=== PATIENT | female | born 1945 | race Caucasian/White ===

== ENCOUNTER 2017-07-18 11:01 | Outpatient (CLI) | payer MEDICARE, MEDICAID ==
--- NOTE | 2017-07-18 13:20 | CT ---
CTA OF THE NECK UTILIZING IV CONTRAST AND 3D REFORMATTED IMAGING: Date: 07/18/17 INDICATION: History of abnormal carotid ultrasound. FINDINGS: The right brachiocephalic artery appears widely patent. There is mild atherosclerotic irregularity involving the right subclavian artery. There is at least m ild to moderate narrowing involving the proximal aspect and origin of the right vertebral artery. The remaining visualized cervical course appears widely patent. Visualized aspects of the basilar artery is widely patent. There is narrowing of the proximal right internal carotid artery. There is approximately 60% luminal caliber narrowing of the proximal right internal carotid artery at this level. There is mild atherosclerotic irregularity involving the proximal left internal carotid artery. No ad ditional focus of hemodynamically significant stenosis is noted involving the internal carotid arteri es. There is emphysematous change involving the lung apices. There is postsurgical change of prior CABG. No pathologically enlarged lymph nodes are evident. Visualized parotid and submandibular glands are normal appearing. There is a 1.0 cm hyperenhancing le waqar within the posterior aspect of the superior pole of the right kidney which may reflect an enlarg ed parathyroid lesion. There is an additional enhancing lesion seen within the left inferior pole of the thyroid which may reflect slightly hypervascular nodule seen on image 72 of series 2. There is scattered degenerative and osteoarthritic change. There is air fluid level within the right maxillary sinus. IMPRESSION: 1. 60% luminal caliber narrowing proximal right internal carotid artery. 2. Mild to moderate atherosclerotic narrowing involving the origin and proximal aspect of the right vertebral artery. 3. Hyperenhancing nodule within the posterior aspect superior pole of the right kidney needs to be f urther characterized. Thyroid ultrasound is recommended. A small nodular enhancing lesion seen within the inferior pole of the left thyroid gland measuring 4.3 mm. 4. Emphysema. 5. Air fluid level within the right maxillary sinus. Recommend correlation for sinusitis. 6. Postsurgical change of prior CABG. POS: [facility]
[2017-07-18] MEDS ORDERED: Iopamidol 370 76% 100 ML VIAL ONE (13:52)
== END 2017-07-18 11:02 | disposition home or self-care (01) ==
LOC: CT 11:01
PROVIDERS: ATTEND Thoracic Surgery (Cardiothoracic Vascular Surgery)
DX: I65.23 Occlusion and stenosis of bilateral carotid arteries (principal); J43.9 Emphysema, unspecified; I67.2 Cerebral atherosclerosis; N28.89 Other specified disorders of kidney and ureter; Z95.1 Presence of aortocoronary bypass graft
CPT/HCPCS: 70498

== ENCOUNTER 2017-08-09 06:02 | Inpatient (IN) | payer MEDICARE, OTHER ==
[2017-08-08 15:20] VITALS: BMI 34.6
[2017-08-09] MEDS ORDERED: CEFAZOLIN/Water 2 GM/20 ML SYRINGE ONE (06:43)
[2017-08-09] MEDS ORDERED: Fentanyl 100 MCG/2 ML VIAL ONE ×2 (06:44→09:37)
[2017-08-09 06:46] LABS: Hemoglobin 12.4 g/dL (12.0-16.0); Mean Corpuscular HGB CONC 33.3 g/dL (32.0-36.0); Mean Corpuscular Hemoglobin 34.1 pg (27.0-31.0); Mean Platelet Volume 6.6 fL (7.4-10.4); Platelet Count 277 thou/uL (130-400); RBC Distribution Width 13.9 % (11.5-14.5); Red Blood Cell (RBC) Count 3.65 mill/uL (4.20-5.40)
[2017-08-09] MEDS ORDERED: Heparin 5,000 UNITS/ML VIAL ONE (06:46)
[2017-08-09] MEDS ORDERED: Protamine Sulfate 50 MG/5 ML VIAL ONE ×2 (06:46→13:09)
[2017-08-09 07:03] LABS: Anion Gap 14 mmol/L (10-20); BUN (Urea Nitrogen) 14 mg/dL (9.8-20.1); Calc. Creatinine Clearance 61 mL/min (70-130); Calcium 10.5 mg/dL (7.8-10.44); Carbon Dioxide 24 mmol/L (23-31); Chloride 103 mmol/L (98-107); Estimated GFR-MDRD 49; Glucose 94 mg/dL (83-110); Potassium 4.7 mmol/L (3.5-5.1); Sodium 136 mmol/L (136-145)
[2017-08-09] MEDS ORDERED: Promethazine HCl 25 MG/ML VIAL IM PRN ×2 (09:33→13:07)
[2017-08-09] MEDS ORDERED: Ondansetron HCl/PF 4 MG/2 ML Vial IVP PRN ×2 (09:33→13:07)
[2017-08-09] MEDS ORDERED: Promethazine HCl 25 MG/ML VIAL SLOW IVP PRN (09:33)
[2017-08-09] MEDS ORDERED: hydrALAZINE 20 MG/ML VIAL ONE (09:37)
[2017-08-09] MEDS ORDERED: Promethazine HCl 25 MG/ML VIAL ONE (10:19)
--- NOTE | 2017-08-09 10:26 | OP ---
DATE OF PROCEDURE: 08/09/2017 PREOPERATIVE DIAGNOSIS: Asymptomatic right carotid stenosis. POSTOPERATIVE DIAGNOSIS: Asymptomatic right carotid stenosis. PROCEDURE: Right carotid endarterectomy with patch angioplasty. SURGEON: Yordan Quick M.D. ANESTHESIA: General endotracheal. ESTIMATED BLOOD LOSS: Less than 100. DESCRIPTION OF PROCEDURE: After consent was obtained, the patient was brought to the operating room and placed in the supine position on the operating room table. Appropriate anesthetic monitor was pl aced and general endotracheal anesthesia induced. Head was rotated to the left and neck extended. J oints were appropriately padded and head supported. Right neck was prepped and draped in usual sterile fashion. Skin incision was made along the anterio r border of sternocleidomastoid. Platysma was incised with electrocautery. Two facial vein branches were divided between clips and ties. Carotid sheath was entered. Cautery and sharp dissection were used to dissect the carotid system. Common external and internal carotid arteries were carefully ex posed. The patient was given 5000 units of heparin. After 3 minutes, the internal, common, and exte rnal carotid arteries were serially clamped. Incision was made on the common carotid artery extended through the bulb onto the internal carotid artery distal to the plaque. A 10-Setswana [place] shunt wa s placed and antegrade flow reestablished. Endarterectomy was begun on the common carotid artery. T he medial plane was developed. Proximal plaque was divided sharply. Endarterectomy was performed wi th mosquito hemostats to the bulb. Eversion endarterectomy of the external carotid artery was perfor med. The internal carotid artery plaque was carefully dissected and a good tapered distal endpoint o btained distally. Medial fibers were debrided. Arteries were flushed with heparinized saline. Bovi ne pericardial patch was sewn in place with running 6-0 Prolene suture. Prior to completion of the p atch suture line, the shunt was clamped and removed. Arteries were backbled into the operative field and flushed with heparinized saline. The suture line was completed. The external carotid artery wa s unclamped and backbled into the operative field. This was to deair the patch. The suture line was then tied. Antegrade flow was reestablished up the external carotid artery. Ten seconds later, ant egrade flow was reestablished up the internal carotid artery. Two separate sutures were placed for h emostasis. Protamine was administered. After adequate hemostasis had been obtained, wounds were irr igated and closed in layers and Dermabond applied to the skin. The patient was awakened and neurolog ically intact in the operating room. She was transferred to the recovery room in stable condition. Needle, sponge, and instrument counts were all reported as correct at the end of the procedure.
[2017-08-09] MEDS ORDERED: Nitroglycerin 50 MG/250 ML BOT 250 ML ONE (11:40)
[2017-08-09] MEDS ORDERED: HYDROcodone/Acetaminophen 5/325 mg Tablet PO PRN ×2 (13:07)
[2017-08-09] MEDS ORDERED: Acetaminophen 325 MG TAB PO PRN (13:07)
[2017-08-09] MEDS ORDERED: Fentanyl 100 MCG/2 ML VIAL SLOW IVP PRN (13:07)
[2017-08-09] MEDS ORDERED: Nitroglycerin 50 MG/250 ML BOT 250 ML IVPB PRN (13:07)
[2017-08-09] MEDS ORDERED: Phenylephrine 10 MG/NS 250 ML 250 ML IVPB PRN (13:07)
[2017-08-09] MEDS ORDERED: hydrALAZINE 20 MG/ML VIAL SLOW IVP PRN (13:07)
[2017-08-09] MEDS ORDERED: Furosemide 40 MG TAB PO PRN (13:07)
[2017-08-09] MEDS ORDERED: Ondansetron HCl/PF 4 MG/2 ML Vial ONE (13:09)
[2017-08-09] MEDS ORDERED: Vecuronium 10 MG VIAL ONE (13:09)
[2017-08-09] MEDS ORDERED: Dexamethasone 20 MG/5 ML VIAL ONE (13:09)
[2017-08-09] MEDS ORDERED: PROPOFOL 200 MG/20 ML VIAL ONE (13:09)
[2017-08-09] MEDS ORDERED: Glycopyrrolate 0.2 MG/ML 5 ML SYRINGE ONE (13:09)
[2017-08-09] MEDS ORDERED: Heparin 10,000 UNITS/ 10 ML VIAL ONE (13:09)
[2017-08-09] MEDS ORDERED: Lidocaine 1% PF 5 ML VIAL ONE (13:09)
[2017-08-09] MEDS: Sodium Chloride 0.9% 1,000 ML IV SCH (15:01)
[2017-08-09] MEDS: CEFAZOLIN/Water 2 GM/20 ML SYRINGE SLOW IVP SCH ×2 (15:13→21:24)
[2017-08-09] MEDS ORDERED: Naproxen 500 MG TAB PO PRN (20:23)
[2017-08-09] MEDS ORDERED: [UNRECOGNIZED DRUG - OTHER] PO SCH (21:00)
[2017-08-09] MEDS ORDERED: Spironolactone 25 MG TAB PO SCH (21:00)
[2017-08-09] MEDS ORDERED: D3 PO SCH (21:00)
[2017-08-09] MEDS ORDERED: Atorvastatin Calcium 40 MG TAB PO SCH (21:00)
[2017-08-09] MEDS ORDERED: GLUCOSAM PO SCH (21:00)
[2017-08-09] MEDS ORDERED: MANG PO SCH (21:00)
[2017-08-09] MEDS ORDERED: CHONDR MSM1 PO SCH (21:00)
[2017-08-09] MEDS ORDERED: Naproxen 500 MG TAB PO SCH ×2 (21:00)
[2017-08-09] MEDS: Carvedilol 6.25 MG TAB PO SCH (21:23)
[2017-08-10] MEDS: Sodium Chloride 0.9% 1,000 ML IV SCH ×2 (01:57→10:04)
[2017-08-10] MEDS: CEFAZOLIN/Water 2 GM/20 ML SYRINGE SLOW IVP SCH (05:40)
--- NOTE | 2017-08-10 07:30 | DIS ---
DATE OF ADMISSION: 08/09/2017 DATE OF DISCHARGE: 08/10/2017 DIAGNOSIS: Asymptomatic right carotid stenosis. PROCEDURES: Right carotid endarterectomy. DESCRIPTION OF HOSPITAL STAY: Ms. Pineda underwent elective right carotid endarterectomy. She has done well postoperatively. She is neurologically intact and being discharged to home in good condit ion to follow up with me in 2 weeks. DISCHARGE MEDICATIONS: Unchanged.
[2017-08-10 07:52] VITALS: TEMP 98.4
[2017-08-10] MEDS ORDERED: Ezetimibe 10 MG TAB PO SCH (09:00)
[2017-08-10] MEDS ORDERED: Valsartan 80 MG TAB PO SCH (09:00)
[2017-08-10] MEDS ORDERED: Aspirin 325 MG TAB PO SCH (09:00)
[2017-08-10] MEDS: Carvedilol 6.25 MG TAB PO SCH (10:03)
[2017-08-10 10:05] VITALS: BP 166/82
[2017-08-10] MEDS ORDERED: Fish Oil 1,000 MG CAP PO SCH (21:00)
--- NOTE | 2017-08-16 19:35 | EKG ---
Test Reason : PREOP Blood Pressure : / mmHG Vent. Rate : 081 BPM Atrial Rate : 081 BPM P-R Int : 180 ms QRS Dur : 122 ms QT Int : 412 ms P-R-T Axes : 061 -45 052 degrees QTc Int : 478 ms Normal sinus rhythm Right bundle branch block Left anterior fascicular block Bifascicular block Abnormal ECG When compared with ECG of 27-JUL-2014 15:28, Left anterior fascicular block is now Present ST no longer depressed in Anterior leads Confirmed by KRISTIE JETT (2) on 08/16/2017 7:35:13 PM Referred By: LILO Confirmed By:KRISTIE JETT
== END 2017-08-10 11:09 | disposition home or self-care (01) | DRG 39 ==
LOC: SURG A 06:02 → IMCU/EMU 13:41
PROVIDERS: ADMIT Thoracic Surgery (Cardiothoracic Vascular Surgery); ATTEND Thoracic Surgery (Cardiothoracic Vascular Surgery)
PROC: 03CK0ZZ Extirpation of Matter from Right Internal Carotid Artery, Open Approach (ICD-10-PCS; principal; 2017-08-09)
PROC: 03UK0KZ Supplement Right Internal Carotid Artery with Nonautologous Tissue Substitute, Open Approach (ICD-10-PCS; 2017-08-09)
DX: I65.21 Occlusion and stenosis of right carotid artery (principal); I67.1 Cerebral aneurysm, nonruptured; E66.9 Obesity, unspecified; E78.2 Mixed hyperlipidemia; I10 Essential (primary) hypertension; I25.10 Atherosclerotic heart disease of native coronary artery without angina pectoris; Z95.1 Presence of aortocoronary bypass graft; F17.210 Nicotine dependence, cigarettes, uncomplicated; K21.9 Gastro-esophageal reflux disease without esophagitis; I70.203 Unspecified atherosclerosis of native arteries of extremities, bilateral legs; Z68.34 Body mass index [BMI] 34.0-34.9, adult
CPT/HCPCS: 80048; 85027; 93005; 93010; 94640; J0360; J1100; J1642; J1644; J2001; J2405; J2550; J2704; J2720; J3010

== ENCOUNTER 2017-09-30 10:09 | Observation (INO) | payer MEDICARE, MEDICAID ==
[2017-09-30] MEDS ORDERED: Albuterol Sulfate 2.5 mg/0.5 ml Neb ONE (10:36)
[2017-09-30] MEDS ORDERED: Albuterol Sulfate 2.5 mg/3 ml Neb ONE (10:36)
[2017-09-30 11:09] LABS: ALT (SGPT) 16 U/L (8-55); AST (SGOT) 25 U/L (5-34); Albumin 3.8 g/dL (3.4-4.8); Alkaline Phosphatase 85 U/L (40-150); Anion Gap 15 mmol/L (10-20); BUN (Urea Nitrogen) 13 mg/dL (9.8-20.1); Bilirubin, Total 0.3 mg/dL (0.2-1.2); CK (CPK) 259 U/L (29-168); Calc. Creatinine Clearance 0 mL/min (70-130); Carbon Dioxide 22 mmol/L (23-31); Chloride 94 mmol/L (98-107); Estimated GFR-MDRD 53; Globulin 3.1 g/dL (2.4-3.5); Glucose 103 mg/dL (83-110); Potassium 4.5 mmol/L (3.5-5.1); Protein, Total 6.9 g/dL (6.0-8.3); Sodium 126 mmol/L (136-145)
[2017-09-30 11:12] LABS: CKMB 3.2 ng/mL (0-6.6); Troponin I 0.048 ng/mL (< 0.028)
[2017-09-30 11:18] LABS: Hemoglobin 13.6 g/dL (12.0-16.0); Mean Corpuscular HGB CONC 34.7 g/dL (32.0-36.0); Mean Corpuscular Hemoglobin 34.5 pg (27.0-31.0); Mean Corpuscular Volume 99.6 fl (81.0-99.0); RBC Distribution Width 14.5 % (11.5-14.5); Red Blood Cell (RBC) Count 3.95 mill/uL (4.20-5.40); White Blood Cell (WBC) Count 10.5 thou/uL (4.8-10.8)
[2017-09-30 11:19] LABS: #Lymphocytes 1.7 thou/uL (1.20-3.40); #Monocytes 0.7 thou/uL (0.11-0.59); %Basophils 0.2 % (0.0-1.0); %Eosinophils 0.1 % (0.0-10.0); %Lymphocytes 15.9 % (21.0-51.0); %Neutrophils 76.8 % (42.0-75.0)
--- NOTE | 2017-09-30 11:21 | RAD ---
PORTABLE CHEST 1 VIEW: Date: 09/30/17 Time: 1036 hours HISTORY: Dyspnea. FINDINGS: Comparison made with exam of 07/27/14. There are changes of median sternotomy. The heart size is normal. The aorta is tortuous. The lungs ar e expanded without focal areas of consolidation, pneumothorax, jass pulmonary edema, or pleural effu sions. IMPRESSION: No acute process. POS: [facility]
[2017-09-30 11:23] LABS: Mean Platelet Volume 8.6 fL (7.4-10.4); PLT Morphology Comment Appears Decreased; Platelet Count 105 thou/uL (130-400)
[2017-09-30] MEDS ORDERED: methylPREDNISolone Sod Succ/PF 125 MG/2 ML VIAL ONE (12:21)
--- NOTE | 2017-09-30 12:32 | PDOC.FPRHP ---
- History of Present Illness Chief Complaint: Chest Pain History of Present Illness: 72 yo F with a history of sCHF and CAD s/p CABG x3 presents with complaint of crushing chest pain that onset this morning. She states that she has been coughing for the past few days and feels that this was the cause of the chest pain. She states that currently her chest pain has resolved. When the pain was present coughing exacerbated the pain. She denies radiation of the pain. Regarding the cough, she states that this has been present for the past few days and is productive in nature without fever or blood in the sputum. The sputum at home was been white/clear. She admits to SOB at home. She also complains of 1 week of watery diarrhea without blood or mucus. She denies associated n/v or abdominal pain. She has had no contacts with similar symptoms. She states that she has not eaten much for the past few days because it "goes right through me." ED Course: In the ED she received 324 mg ASA, sublingual nitro 0.4 mg, albuterol neb, and , solumedrol 125 mg IV. EKG showed a RBBB and left anterior fascicular block which was consistent with EKG from 08/09/17 - Allergies/Adverse Reactions Allergies Allergy/AdvReac Type Severity Reaction Status Date / Time adhesive Allergy Verified 09/30/17 13:35 black pepper Allergy Verified 09/30/17 13:35 ibuprofen Allergy dizzy, Verified 09/30/17 13:35 can't see, can't stand - Home Medications Medication Instructions Recorded Confirmed Type Aspirin 325 mg PO DAILY 08/08/17 09/30/17 History Atorvastatin Calcium 1 tab PO DAILY 08/08/17 09/30/17 History Carvedilol 1 tab PO BID 08/08/17 09/30/17 History Cholecalciferol (Vitamin D3) 2,000 unit PO DAILY 08/08/17 09/30/17 History [Vitamin D3] Esomeprazole Magnesium [NexIUM] 1 tab PO ASDIR 08/08/17 09/30/17 History Ezetimibe 1 tab PO DAILY 08/08/17 09/30/17 History Furosemide [Lasix] 40 mg PO DAILY PRN 08/08/17 09/30/17 History Glucosam/Chondr-Msm1/D3/C/Jd 1 tablet PO BID 08/08/17 09/30/17 History [Glucosamine Chondroitin Complex] Naproxen Sodium [Aleve] 2 tab PO BID PRN 08/08/17 09/30/17 History Allen-3 Fatty Acids/Fish Oil 1 cap PO HS 08/08/17 09/30/17 History [Allen 3 Fish Oil Softgel] Spironolactone 0.5 tab PO HS 08/08/17 09/30/17 History - History PMHx: HTN CAD COPD (likely) Peripheral Neuropathy PAD CHF GERD HLD CVA DVT post graft for CABG PSHx: CABG x4 Endarterectomy Right AAA repair Right cerebral aneurism repair Liat FHx: Social: 50 pack year smoking - Review of Systems General: denies: fever/chills, weight/appetite/sleep changes, night sweats Eyes: denies: eye pain, vision changes ENT: denies: nasal congestion, rhinorrhea Respiratory: reports: cough (Productive), shortness of breath Cardiovascular: reports: chest pain (Crushing, substernal, non radiating). denies: palpitation, edema Gastrointestinal: reports: diarrhea (watery. w/o blood or mucus). denies: nausea, vomiting, abdominal pain Genitourinary: denies: incontinence, dysuria Skin: denies: rashes, lesions Musculoskeletal: denies: pain, tenderness Neurological: denies: numbness, syncope Psychological: denies: anxiety, depression - Vital signs BP: 109/51 HR: 77 RR: 20 Tmax: 97.6 Pox: 95% on 2L Wt: 79kg - Physical Exam Constitutional: NAD, awake, alert and oriented HEENT: normocephalic and atraumatic, PERRLA, no scleral icterus Neck: supple, FROM Chest: no-tender to palpation Heart: RRR, normal S1/S2, no murmurs/rubs/gallops, no edema Lungs: no respiratory distress -Lungs: Mild expiratory wheezing worst in the bases b/l Abdomen: soft, bowel sounds present -Abdomen: LLQ TTP Musculoskeletal: normal structure, normal tone, ROM grossly normal Neurological: no focal deficit, CN II-XII intact, normal sensation Skin: no rash/lesions, good turgor Heme/Lymphatic: no unusual bruising or bleeding Psychiatric: normal mood and affect FMR H&P: Results - Labs Result Diagrams: 09/30/17 10:40 09/30/17 10:40 Lab results: WBC 10.5 thou/uL (4.8-10.8) 09/30/17 10:40 Hgb 13.6 g/dL (12.0-16.0) 09/30/17 10:40 Hct 39.4 % (36.0-47.0) 09/30/17 10:40 MCV 99.6 fl (81.0-99.0) H 09/30/17 10:40 Plt Count 105 thou/uL (130-400) L 09/30/17 10:40 Neutrophils % 76.8 % (42.0-75.0) H 09/30/17 10:40 Sodium 126 mmol/L (136-145) L 09/30/17 10:40 Potassium 4.5 mmol/L (3.5-5.1) 09/30/17 10:40 Chloride 94 mmol/L (98-107) L 09/30/17 10:40 Carbon Dioxide 22 mmol/L (23-31) L 09/30/17 10:40 BUN 13 mg/dL (9.8-20.1) 09/30/17 10:40 Creatinine 1.03 mg/dL (0.6-1.1) 09/30/17 10:40 Glucose 103 mg/dL (83-110) 09/30/17 10:40 Calcium 10.0 mg/dL (7.8-10.44) 09/30/17 10:40 Total Bilirubin 0.3 mg/dL (0.2-1.2) 09/30/17 10:40 AST 25 U/L (5-34) 09/30/17 10:40 ALT 16 U/L (8-55) 09/30/17 10:40 Alkaline Phosphatase 85 U/L (40-150) 09/30/17 10:40 Creatine Kinase 259 U/L (29-168) H 09/30/17 10:40 CK-MB (CK-2) 3.2 ng/mL (0-6.6) 09/30/17 10:40 B-Natriuretic Peptide 243.2 pg/mL (0-100) H 09/30/17 10:40 Serum Total Protein 6.9 g/dL (6.0-8.3) 09/30/17 10:40 Albumin 3.8 g/dL (3.4-4.8) 09/30/17 10:40 Trop 0.048 - EKG Interpretation EKG: RBBB, left anterior fascicular block, NSR - Radiology Interpretation Chest x-ray Status: report reviewed by me (No acute process) FMR H&P: A/P - Problem List (1) Atypical chest pain Current Visit: Yes Status: Resolved Priority: High Code(s): R07.89 - OTHER CHEST PAIN (2) COPD exacerbation Current Visit: Yes Status: Acute Priority: High Code(s): J44.1 - CHRONIC OBSTRUCTIVE PULMONARY DISEASE W (ACUTE) EXACERBATION (3) Gastroenteritis Current Visit: Yes Status: Acute Priority: Medium Code(s): K52.9 - NONINFECTIVE GASTROENTERITIS AND COLITIS, UNSPECIFIED (4) Hyponatremia Current Visit: Yes Status: Acute Priority: Medium Code(s): E87.1 - HYPO- OSMOLALITY AND HYPONATREMIA (5) Hypochloremia Current Visit: Yes Status: Acute Priority: Medium Code(s): E87.8 - OTH DISORDERS OF ELECTROLYTE AND FLUID BALANCE, NEC (6) PAD (peripheral artery disease) Current Visit: Yes Status: Chronic Priority: Low Code(s): I73.9 - PERIPHERAL VASCULAR DISEASE, UNSPECIFIED (7) CAD (coronary artery disease) Current Visit: Yes Status: Chronic Priority: Medium Code(s): I25.10 - ATHSCL HEART DISEASE OF [place] CORONARY ARTERY W/O ANG PCTRS Qualifiers: Coronary Disease-Associated Artery/Lesion type: bypass graft [place] vs. transplanted heart: [place] heart Associated angina: without angina Qualified Code(s): I25.810 - Atherosclerosis of coronary artery bypass graft(s) without angina pectoris (8) CHF (congestive heart failure) Current Visit: No Status: Chronic Priority: Medium Code(s): I50.9 - HEART FAILURE, UNSPECIFIED Qualifiers: Heart failure type: systolic (9) GERD (gastroesophageal reflux disease) Current Visit: Yes Status: Chronic Priority: Low Code(s): K21.9 - GASTRO- ESOPHAGEAL REFLUX DISEASE WITHOUT ESOPHAGITIS (10) HTN (hypertension) Current Visit: Yes Status: Chronic Priority: Medium Code(s): I10 - ESSENTIAL (PRIMARY) HYPERTENSION Qualifiers: Hypertension type: essential hypertension Qualified Code(s): I10 - Essential (primary) hypertension - Plan Atypical chest pain - Admit for tele obs - trend trops - it has been 1 year since last echo, will repeat - Nuc stress test in am - NPO at midnight COPD exacerbation, likely - Prednisone PO 40 mg - Levaquin 500 mg PO - Schedule duonebs q4 - O2 by NC PRN to maintain sat over 92% Gastroenteritis - likely viral - will get fecal lactoferrin, O&P, C diff antigen - gentle IVF given pts hx of CHF Hyponatremia - asymptomatic - 2/2 volume loss via GI - IVF as above - BMP in am Hypochloremia - asymptomatic - 2/2 volume loss via GI - IVF as above - BMP in am CHF - patient does not currently appear to be volume overloaded - monitor I/O - heart healthy low sodium diet - continue home meds HTN - currently controlled - continue home meds GERD - continue home PPI HLD - continue statin CAD/PAD - stress test as above - continue home antihypertensives, ASA, statin 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 FMR H&P: Upper Level - Pertinent history 72 yo with hx of CABG CHF, and long smoking hx. She has been ill with diarrhea for one week, had significant and productive cough and had subsequent chest pain this morning. Chest pain has improved with less coughing. no fever at home. She has been eating less because of the diarhea. - Pertinent findings Vital signs WNL except 95% on 2 L Gen: NAD, AOx3 CV: RRR, no murmurs or rubs Resp: mild wheezing and crackles along patients left lung. abd: Soft, nontender, non distended. ECG: findings as above, but no changes from previous. Trop:0.048 BNP 243 CXR: NAD - Plan Date/Time: 09/30/17 1225 1. Atypical chest pain- Likely secondary to cough,see below, but will investigate CAD causes because of patient's hx. Will trend trops and get stress test tomorrow. Will order echo to evaluate CHF. 2. Possible new diagnosis COPD- patient had negative work up 4 years ago but she has long smoking hx, and new hypoxia and cough. Will treat with steroids, duonebs and abx. Patient's physical and hx are consistent with pneumonia but she is not septic and WBC in normal. CXR normal. ABX for COPD will cover CAP regardless 3. Gastroenteritis- Diarrhea for one week. Will give gentle fluids and check C diff. 4. hyponatremia- likely 2/2 to diarrhea or SIADH with patient's current lung findings. will give gentle fluids an monitor. 5. Gerd- home ppi 6. CAD- see above. will continue home statin 7. HLD- home statin 8. Tobacco abuse- counseled on how important it is for her quit. IJessica MD, have evaluated this patient and agree with findings/plan as outlined by agriculture intern resident. Pertinent changes/additions are listed here. Attending Addendum - Attending Addendum Date/Time: 09/30/17 6509 I personally evaluated the patient and discussed the management with Dr. Ragland. I agree with the History, Examination, Assessment and Plan documented above with any addition or exceptions noted below. The patient presented with chest pain, cough and diarrhea. We will trend trops and get stress test and echo. Will treat with prednisone and levaquin. Will also get stool studies.
[2017-09-30] MEDS ORDERED: Ondansetron PF 4 MG/2 ML Vial IVP PRN (13:14)
[2017-09-30] MEDS ORDERED: Ondansetron ODT 4 MG TAB SL PRN (13:14)
[2017-09-30] MEDS ORDERED: Acetaminophen 325 MG TAB PO PRN (13:14)
[2017-09-30 13:16] VITALS: BMI 33.6
[2017-09-30] MEDS ORDERED: Furosemide 40 MG TAB PO PRN (13:25)
[2017-09-30] MEDS ORDERED: Non-Formulary Item 1 EACH (Naproxen Sodium [Aleve] 2 TAB) PO PRN (13:25)
[2017-09-30] MEDS ORDERED: ESOMEPRAZOLE MAGNESIUM PO SCH (13:30)
[2017-09-30 14:25] LABS: Troponin I 0.045 ng/mL (< 0.028)
[2017-09-30 17:20] LABS: Troponin I 0.053 ng/mL (< 0.028)
[2017-09-30] MEDS: Sodium Chloride 0.9% 1,000 ML IV SCH (17:22)
[2017-09-30 20:22] LABS: Troponin I 0.046 ng/mL (< 0.028)
[2017-09-30] MEDS: Fish Oil 1,000 MG CAP PO SCH (20:51)
[2017-09-30] MEDS: Spironolactone 25 MG TAB PO SCH (20:51)
[2017-09-30] MEDS ORDERED: (Glucosam/Chondr-Msm1/D3/C/Mang [Glucosamine Chondroitin Comple PO SCH (21:00)
[2017-10-01] MEDS: Sodium Chloride 0.9% 1,000 ML IV SCH ×2 (01:05→17:28)
[2017-10-01] MEDS: Naproxen 500 MG TAB PO PRN ×2 (01:08→05:27)
[2017-10-01 05:11] LABS: Anion Gap 13 mmol/L (10-20); BUN (Urea Nitrogen) 12 mg/dL (9.8-20.1); Calc. Creatinine Clearance 82 mL/min (70-130); Calcium 9.1 mg/dL (7.8-10.44); Carbon Dioxide 20 mmol/L (23-31); Cardiac Risk 3.1 (Less than 4.5); Chloride 99 mmol/L (98-107); Cholesterol 93 mg/dl (< 200 Desired); Estimated GFR-MDRD 72; Glucose 132 mg/dL (83-110); HDL Cholesterol 30 mg/dL (>60 Neg Risk); LDL Cholesterol, Calculated 48 mg/dL; Potassium 4.3 mmol/L (3.5-5.1); Sodium 128 mmol/L (136-145); Triglycerides 76 mg/dL (Less than 150)
[2017-10-01 06:41] LABS: Hemoglobin 12.1 g/dL (12.0-16.0); Mean Corpuscular HGB CONC 34.6 g/dL (32.0-36.0); Mean Corpuscular Hemoglobin 34.3 pg (27.0-31.0); Mean Corpuscular Volume 99.3 fl (81.0-99.0); Mean Platelet Volume 8.6 fL (7.4-10.4); Platelet Count 100 thou/uL (130-400); RBC Distribution Width 14.4 % (11.5-14.5); Red Blood Cell (RBC) Count 3.53 mill/uL (4.20-5.40); White Blood Cell (WBC) Count 8.1 thou/uL (4.8-10.8)
--- NOTE | 2017-10-01 09:08 | PDOC.FM ---
- Subjective Subjective: Patient states she slept well with no interruptions overnight. Still coughing, non-productive. Denies chest pain or diarrhea overnight. - Objective Vital Signs & Weight: Vital Signs (12 hours) Temp Pulse Resp BP Pulse Ox 10/01/17 08:00 97.7 F 85 20 167/74 H 93 L 10/01/17 03:45 98.3 F 87 24 H 147/70 H 94 L 10/01/17 00:38 83 16 Weight Weight 80.739 kg I&O: 09/30/17 10/01/17 10/02/17 06:59 06:59 06:59 Intake Total 1923 Output Total 1450 Balance 473 Result Diagrams: 10/01/17 04:42 10/01/17 04:42 <Blake Regalado - Last Filed: 10/01/17 09:06> - Objective Vital Signs & Weight: Weight Admit Weight 80.739 kg Weight 80.558 kg Result Diagrams: 10/01/17 04:42 10/02/17 07:31 <Héctor Landa - Last Filed: 10/29/17 02:56> Phys Exam - Physical Examination HEENT: PERRLA, moist MMs Neck: no nodes, supple end expiratory wheezes diffusely Cardiovascular: RRR, no significant murmur Gastrointestinal: soft, non-tender, no distention, positive bowel sounds Musculoskeletal: no edema, pulses present Neurological: non-focal, normal sensation, moves all 4 limbs Psychiatric: normal affect, A&O x 3 <Blake Regalado - Last Filed: 10/01/17 09:06> Dx/Plan (1) COPD exacerbation Code(s): J44.1 - CHRONIC OBSTRUCTIVE PULMONARY DISEASE W (ACUTE) EXACERBATION Status: Acute (2) Gastroenteritis Code(s): K52.9 - NONINFECTIVE GASTROENTERITIS AND COLITIS, UNSPECIFIED Status : Acute (3) Hypochloremia Code(s): E87.8 - OTH DISORDERS OF ELECTROLYTE AND FLUID BALANCE, NEC Status: Acute (4) Hyponatremia Code(s): E87.1 - HYPO-OSMOLALITY AND HYPONATREMIA Status: Acute (5) CAD (coronary artery disease) Code(s): I25.10 - ATHSCL HEART DISEASE OF [place] CORONARY ARTERY W/O ANG PCTRS Status: Chronic QualifierTitle: Coronary Disease-Associated Artery/Lesion type: bypass graft [place] vs. transplanted heart: [place] heart Associated angina: without angina Qualified Code(s): I25.810 - Atherosclerosis of coronary artery bypass graft(s) without angina pectoris (6) GERD (gastroesophageal reflux disease) Code(s): K21.9 - GASTRO-ESOPHAGEAL REFLUX DISEASE WITHOUT ESOPHAGITIS Status: Chronic (7) HTN (hypertension) Code(s): I10 - ESSENTIAL (PRIMARY) HYPERTENSION Status: Chronic QualifierTitle: Hypertension type: essential hypertension Qualified Code( s): I10 - Essential (primary) hypertension (8) PAD (peripheral artery disease) Code(s): I73.9 - PERIPHERAL VASCULAR DISEASE, UNSPECIFIED Status: Chronic (9) Atypical chest pain Code(s): R07.89 - OTHER CHEST PAIN Status: Resolved (10) CHF (congestive heart failure) Code(s): I50.9 - HEART FAILURE, UNSPECIFIED Status: Chronic QualifierTitle: Heart failure type: systolic - Plan Plan: Atypical chest pain - Admit for tele obs - trops trending down - it has been 1 year since last echo, will repeat this AM - Nuc stress test this am COPD exacerbation, likely - Prednisone PO 40 mg - Levaquin 500 mg PO - Schedule duonebs q4 - O2 by NC PRN to maintain sat over 92% - on RA this morning Gastroenteritis - likely viral - will get fecal lactoferrin, O&P, C diff antigen - gentle IVF given pts hx of CHF Hyponatremia - asymptomatic - 2/2 volume loss via GI - IVF as above - BMP in am, trend Hypochloremia - asymptomatic - 2/2 volume loss via GI - IVF as above - BMP in am, trend CHF - patient does not currently appear to be volume overloaded - monitor I/O - heart healthy low sodium diet - continue home meds HTN - currently controlled - continue home meds GERD - continue home PPI HLD - continue statin CAD/PAD - stress test as above - continue home antihypertensives, ASA, statin 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 Goff I agree with the History, Examination, Assessment and Plan documented above with any addition or exceptions noted below. Pt. feels better, but continues to have wheezes on exam. Awaiting Cardiolyte and Echo. If abnormal, will discuss with Cards. Continue Nebs, steroids, abx' s for COPD exacerbation. <Héctor Landa - Last Filed: 10/29/17 02:56>
[2017-10-01] MEDS: Ezetimibe 10 MG TAB PO SCH (12:17)
[2017-10-01] MEDS: predniSONE 20 MG TAB PO SCH (12:17)
[2017-10-01] MEDS: Atorvastatin Calcium 40 MG TAB PO SCH (12:18)
[2017-10-01] MEDS: Aspirin 325 MG TAB PO SCH (12:18)
[2017-10-01] MEDS: Enoxaparin Sodium 40 MG/0.4 ML SYRINGE SC SCH (12:19)
--- NOTE | 2017-10-01 14:04 | NM ---
NUCLEAR MEDICINE CARDIAC STRESS TEST WITH EJECTION FRACTION: HISTORY: ACS. Congestive heart failure. Coronary artery disease. Hypertension. COPD. COMPARISON: None. TECHNIQUE: Stress and rest was performed after the intravenous administration of 33 and 27 mCi technetium-99m se stamibi intravenously, respectively. FINDINGS: There is a large volume scar of the lateral wall left ventricle. No reversible ischemia is present. T here is global hypokinesia with akinesia of the inferior and lateral wall. IMPRESSION: 1. Evidence of lateral wall scar, as well as global hypokinesia and inferior and some lateral wall a kinesia. 2. Abnormally low ejection fraction at 22%. POS: [facility]
[2017-10-01] MEDS ORDERED: Regadenoson 0.4 MG/5 ML SYRINGE ONE (15:24)
[2017-10-01] MEDS: Fish Oil 1,000 MG CAP PO SCH (20:26)
[2017-10-01] MEDS: Spironolactone 25 MG TAB PO SCH (20:27)
[2017-10-01] MEDS ORDERED: Carvedilol 6.25 MG TAB PO SCH (21:00)
--- NOTE | 2017-10-02 06:19 | CON ---
DATE OF ADMISSION: 09/30/2017 DATE OF CONSULTATION: 10/01/2017 INDICATION FOR CONSULTATION: This is a very pleasant 72-year-old female with a long history of perip heral vascular disease, coronary artery disease who was presented to the hospital after having coughi ng and chest discomfort. She had a stress test today which showed no evidence of reversible ischemia . She is having a lateral scar but during the procedure, she was also noted that she had decreased e jection fraction. Previous echocardiogram showed an ejection fraction around 45% to 50% by echocardi ograms in the office. We were asked to see her due to the change in the ejection fraction, but she d enied any chest pain to me as I was present during the stress test earlier today. She was complainin g of the cough and fatigue, otherwise was doing okay and this afternoon when I see her, she is actual ly feeling better than she did earlier this morning and appears to be in no acute distress. She smok ed heavily until just recently. She says she stopped smoking a couple of weeks ago. For her complet e history and physical, review of systems, family history, social history, medications, and allergies , please refer to the notes dictated by the nurse practitioner Kadie, I have reviewed this with her a nd we reviewed the patient together also, and I would agree with her assessment and plan. PHYSICAL EXAMINATION: GENERAL: Reveals an elderly female. VITAL SIGNS: Blood pressure 142/66, heart rate is 86 and regular, O2 saturation 92%, respiratory rat e is 18. She is afebrile. HEENT: Shows head to be normocephalic, atraumatic. There is a well-healed surgical incision on the right carotid area. CHEST: Has diffuse rales and rhonchi throughout. CARDIOVASCULAR: Exam reveals regular rate and rhythm with no gross murmurs. ABDOMEN: Soft and nontender. Positive bowel sounds are present. EXTREMITIES: Showed no clubbing, cyanosis or edema. She has decreased popliteal pulses, decreased f emoral pulses. I cannot palpate pedal pulses. Extremities are cool, but otherwise unremarkable. NEUROLOGIC: She appears to be intact. IMPRESSION: Elderly female with abnormal stress test today which showed decreasing ejection fraction . Echocardiogram showed ejection fraction today of 40-45% by my evaluation. Otherwise, she has mild to moderate mitral and tricuspid valve regurgitation and some aortic valve sclerosis, but no signifi cant obstructive lesions were noted. She has had history of coronary artery disease and has had I be lieve bypass surgery or myocardial infarction in the past, but otherwise has been doing quite well. She does have a right carotid endarterectomy and has peripheral vascular disease. At this time, we w ill continue to monitor her overnight. She has been unremarkable. She denies any chest pain since I saw her this morning, but otherwise appears to be doing quite well. For the remainder of the assess ment and plan, please refer to the notes dictated by the nurse practitioner. At this time, the patie nt overall is stable.
--- NOTE | 2017-10-02 07:05 | CON ---
CARDIOLOGY CONSULT DATE OF CONSULTATION: 10/01/2017 PRIMARY DISTRICT MANAGER POSTAL SERVICE: Jeremy Lepe M.D. REFERRING PHYSICIAN: Blake Regalado MD REASON FOR CARDIOLOGY CONSULT: Nuclear stress test showing a new low EF 22%. HISTORY OF PRESENT ILLNESS: Ms. Pineda is a 72-year-old female with significant history of CAD with history CABG x4 in 2004 in [place] and stent placement in 2013, COPD exacerbation, hypertension, peripheral vascular disease with bilateral iliac stent placement, and rupture of cerebral aneurysm and coil replacement in 2005. Patient presented to the emergency department for worsening of the weakness and dizziness. Patient reports that she had some kind of infection a few weeks ago and started having watery diarrhea for 5 days and chronic cough with shortness of breath for 2 days prior to this admission. She could not eat or drink for one week and she felt she was already dehydrated so that she decided to present to the ER for further evaluation to treatment. She also experienced chest pain to the midsternal area. She thinks it is from chronic cough. She describes the pain is not similar to the pain which she had prior to myocardial infarction in 2004. During the initial cardiology consultation assessment, the patient still complain of the light dizziness, which she describes as the room is spinning like dizziness, but no other cardiac complaints such as shortness of breath, chest pain or discomfort in her chest, palpitation or fluttering, nausea, vomiting, numbness to the left upper extremity or any other cardiac complaints. The patient's stress test today shows no reversible ischemia, but evidence of lateral wall scar as well as global hypokinesia and inferior and some lateral wall hypokinesia and ejection fraction of 22%; however, patient's today's echocardiogram shows patient's EF of 45%-50%. Patient had CABG x4 in 2004 [place] and stent placement in 2013. Prior to the stent placement, the patient's EF was 35%-40% and 45%-50% after the stent. Cardiac catheterization in 2013 revealed 3-vessel CAD with left main CAD , moderate left ventricular dysfunction, 3 of 4 graft patent, and success stent placement in the RCA. Her pulmonary function test in 2014 showed restrictive pulmonary impairment and patient was diagnosed of COPD; however, she reports that she was doing well without any respiratory distress until a few weeks ago. She continued to smoke 4-5 cigars a day until she quit about 1 week ago. The patient's EKG today shows a sinus rhythm with unchanged right bundle henok block, no ST segments or T wave inversions. PAST MEDICAL HISTORY: 1. Coronary artery disease. 2. Hypertension. 3. Hypercholesterolemia. 4. Rupture of cerebral aneurysm in the right side with coil replacement. 5. History of left leg DVT in 2004. 6. Peripheral neuropathy. 7. Peripheral artery disease. 8. GERD. PAST SURGICAL HISTORY: 1. CABG x4 in 2004, which was done in [place]. 2. Stent placement in the right RCA in 2013. 3. Bilateral iliac stents placement in 2013. 4. Right carotid endarterectomy in 08/2017. 5. Gallbladder removed in . 6. Coil replacement from rupture of right cerebral aneurysm in 2005. FAMILY HISTORY: The patient's mother had a history of diabetes; however, there are no significant family history of coronary artery disease, hypertension, hyperlipidemia or stroke. SOCIAL HISTORY: Patient smokes 4-5 cigars a day and she quit about 1 week ago. She had smoked more than 55 years. She denies any ETOH or illicit drug abuse. She lives and takes care of 2 great grandchildren. Her granddaughter lives next door. She is active at home cooking, cleaning house for great grandchildren. ALLERGIES: The patient is allergic to ADHESIVE TAPE, BLACK PEPPER, and IBUPROFEN. HOME MEDICATIONS: [place] 3 one capsule at night, naproxen 220 mg 2 tablets twice a day as needed, vitamin D 2000 units daily, aspirin 325 mg once a day, glucosamine 1 tablet twice a day, spironolactone 25 mg half tablet once a day at night, Zetia 10 mg once a day, Nexium 40 mg once a day, carvedilol 6.25 one tablet twice a day, atorvastatin 80 mg once a day, Lasix 40 mg daily as needed. REVIEW OF SYSTEMS: The following complete review of systems was negative, unless otherwise mentioned in the HPI or below: Constitutional: Weight loss or gain, sense of well-being, ability to conduct usual activities, exercise tolerance. Skin/Breast: Rash, itching, changes in hair growth or loss, nail changes, breast lumps, tenderness, swelling, nipple discharge. Eyes: She wears glasses and denies double vision, vision changes, tearing, blind spots, pain. ENT: Headache, lightheadedness, nose bleeding, colds, obstruction, discharge, dental difficulties, gingival bleeding, dentures, neck stiffness, pain, tenderness, masses in thyroid or other areas. Cardiovascular: Positive for precordial pain, but negative for palpitations, syncope, dyspnea on exertion , orthopnea, nocturnal paroxysmal dyspnea, edema, cyanosis, heart murmurs, varicosis claudication. Respiratory: Positive for shortness of breath, but negative for wheezing, stridor, hemoptysis. Gastrointestinal: Poor appetite, dysphagia, abdominal pain, heartburn, nausea, vomiting, jaundice, constipation, abnormal stool. Genitourinary: Urgency, frequency, dysuria, nocturia, hematuria, polyuria, oliguria, unusual color of urine. Musculoskeletal: She uses a cane, but negative for swelling, redness or heat of muscle or joint, limitation of motion. Neurologic: Seizure conversion paralysis, tremor, incoordination. Psychiatric: Emotional problem, anxiety, depression, previous psychiatric care, unusual perceptions, hallucinations. PHYSICAL EXAMINATION: VITAL SIGNS: Blood pressure 148/66, pulse is 85, respiratory rate 18, O2 sat 92 % up to 98% on room air, temperature 97.6. GENERAL: Well-developed, well-nourished without any acute distress. HEAD: Normocephalic, atraumatic. EYES: Extraocular muscle movement intact. ENT: Oral and nose mucosa are moist without lesion. She wear denture. NECK: Supple and normal range of motion. LUNGS: Very diminished at the bases and rhonchi, and no wheezing noted. CARDIOVASCULAR: Regular rate and rhythm. Normal S1, S2. There are no S3 or S4. No significant murmur, hives, thrill bruit, or rub noted. EXTREMITIES: There are 2+ pulses in bilateral dorsal pedis, posterior tibial, popliteal, and femoral pulse arteries. Carotid pulse present without bruit or thrill. No edema in the bilateral lower extremities. ABDOMEN: Soft, nontender. All mass to palpate, nondistended. Bowel sounds are present. MUSCULOSKELETAL: No calf tenderness, able to move all extremities. SKIN: Warm and dry. No skin rash or lesion or bruise noted. NEUROLOGIC: Alert, oriented x4, awake. Normal affect. Nonfocal. PSYCHIATRIC: Mood, affect are normal. LABORATORY DATA: A 12-lead EKG in the ER shows sinus rhythm with occasional PVCs unchanged right bundle henok block. WBC 8.1, hemoglobin 12.1, hematocrit 35.1, platelets 100. Sodium 128, potassium 4.3, BUN 12, creatinine 0.79, glucose 132. AST 25, ALT 16, creatine kinase is 259, CK-MB 3.1, troponin 0.048, 0.045, 0.053, 0.046. BNP is 243. Total cholesterol 93, triglycerides 76, HDL 30 and LDL of 48. Chest x-ray shows no acute process. The patient's stress test shows no evidence of reversible ischemia, but evidence of lateral wall scars, global hypokinesia inferior and some lateral wall akinesia and the EF was 22%. However , patient's echocardiogram today shows EF of 45%-50%. ASSESSMENT AND PLAN: 1. Ischemic cardiomyopathy with decreased ejection fraction. The patient's stress test today shows the ejection fraction of 22%; however, patient's echocardiogram today showed a 45%-50%, which is no change from 2017. The patient denies any shortness of breath, swelling the leg or bloated abdomen. We would like to continue current medication and we like to continue to monitor. Most likely the patient might be discharged tomorrow; however, we like to defer to the Dr. Lepe, who is her primary inspector missile. 2. Indeterminate troponin level, which is trending down at this moment. Possible the patient's increased troponin is due to severe cough and dehydration due to chronic diarrhea for 5 days. Again, patient does not have any chest pain or discomfort in her chest and the patient's EKG does not show any ST segment changes or T-wave inversions. We like to continue to monitor the patient on the telemetry at this moment. 3. Coronary artery disease with a history of coronary artery bypass graft x4 and a stent placement in RCA in 2014. Patient's condition is stable. We would like to continue to monitor on telemetry. The patient is on aspirin 325 mg once a day, statin, Lovenox, and Zetia. At this time, I like to restart the patient on carvedilol from [facility]. 4. Hypertension. Her blood pressure is elevated at this moment. Again, the patient's carvedilol will be started from [facility]. 5. Hyperlipidemia. Patient is on statin. The patient tolerated well. 6. Gastroesophageal reflux disease. Patient is on Protonix. The patient's condition is stable at this moment. 7. Peripheral artery disease with history of bilateral iliac stent placement. The condition is stable at this moment. We like to continue to monitor. 8. Hyponatremia. Patient should be on some mild fluid restriction at this moment. 9. Current smoker. Smoking cessation education given to the patient and her family. Thank you very much for allowing Cardiology Service to participate in care of this patient. We will follow along with the patient care team and make further recommendations as appropriate. Dr. Lepe is going to take over the patient' s care from tomorrow. LATRICIA
[2017-10-02 07:56] LABS: Anion Gap 13 mmol/L (10-20); BUN (Urea Nitrogen) 12 mg/dL (9.8-20.1); Calc. Creatinine Clearance 73 mL/min (70-130); Calcium 9.8 mg/dL (7.8-10.44); Carbon Dioxide 23 mmol/L (23-31); Chloride 100 mmol/L (98-107); Estimated GFR-MDRD 63; Glucose 93 mg/dL (83-110); Potassium 3.8 mmol/L (3.5-5.1); Sodium 132 mmol/L (136-145)
[2017-10-02] MEDS ORDERED: Carvedilol 6.25 MG TAB PO SCH (08:00)
[2017-10-02] MEDS: Aspirin 325 MG TAB PO SCH (08:49)
[2017-10-02] MEDS: Ezetimibe 10 MG TAB PO SCH (08:49)
[2017-10-02] MEDS: predniSONE 20 MG TAB PO SCH (08:50)
[2017-10-02] MEDS: Atorvastatin Calcium 40 MG TAB PO SCH (08:50)
[2017-10-02] MEDS: Enoxaparin Sodium 40 MG/0.4 ML SYRINGE SC SCH (08:52)
--- NOTE | 2017-10-02 09:04 | PDOC.FM ---
- Objective Vital Signs & Weight: Vital Signs (12 hours) Temp Pulse Resp BP Pulse Ox 10/02/17 08:24 97.4 F L 78 16 145/68 H 92 L 10/02/17 08:00 97.4 F L 78 16 10/02/17 06:41 75 16 97 10/02/17 04:06 98.1 F 77 20 140/65 92 L 10/02/17 00:07 97.7 F 73 20 143/69 H 91 L Weight Admit Weight 80.739 kg Weight 80.558 kg I&O: 10/01/17 10/02/17 10/03/17 06:59 06:59 06:59 Intake Total 1923 200 Output Total 1450 1900 Balance 473 -1700 Result Diagrams: 10/01/17 04:42 10/02/17 07:31 <Kiko Marte - Last Filed: 10/02/17 11:51> - Subjective Subjective: This morning the patient states she is feeling much better and wants to go home. She states that her cough is improved. She denies shortness of breath. She does complains of some GERD symptoms stating that the protonix does not work as well as the nexium she normally takes at home. - Objective Vital Signs & Weight: Vital Signs (12 hours) Temp Pulse Resp BP Pulse Ox 10/02/17 08:24 97.4 F L 78 16 145/68 H 92 L 10/02/17 08:00 97.4 F L 78 16 10/02/17 06:41 75 16 97 10/02/17 04:06 98.1 F 77 20 140/65 92 L 10/02/17 00:07 97.7 F 73 20 143/69 H 91 L Weight Admit Weight 80.739 kg Weight 80.558 kg I&O: 10/01/17 10/02/17 10/03/17 06:59 06:59 06:59 Intake Total 1923 200 Output Total 1450 1900 Balance 473 -1700 Result Diagrams: 10/01/17 04:42 10/02/17 07:31 <Blake Regalado - Last Filed: 10/02/17 13:54> - Objective Vital Signs & Weight: Vital Signs (12 hours) Temp Pulse Resp BP Pulse Ox 10/02/17 13:59 84 18 97 10/02/17 11:50 97.7 F 72 20 131/61 93 L 10/02/17 08:24 97.4 F L 78 16 145/68 H 92 L 10/02/17 08:00 97.4 F L 78 16 10/02/17 06:41 75 16 97 10/02/17 04:06 98.1 F 77 20 140/65 92 L Weight Admit Weight 80.739 kg Weight 80.558 kg I&O: 10/01/17 10/02/17 10/03/17 06:59 06:59 06:59 Intake Total 1923 200 Output Total 1450 1900 Balance 473 -1700 Result Diagrams: 10/01/17 04:42 10/02/17 07:31 <Cheryl Ley - Last Filed: 10/02/17 14:59> Phys Exam - Physical Examination HEENT: PERRLA, moist MMs Neck: no nodes, full ROM Respiratory: no wheezing, clear to auscultation bilateral (much improved from yesterday, no wheezes today) Cardiovascular: RRR, no significant murmur, no rub Gastrointestinal: soft, non-tender, no distention, positive bowel sounds Musculoskeletal: no edema, pulses present Neurological: non-focal, moves all 4 limbs <Blake Regalado - Last Filed: 10/02/17 13:54> Dx/Plan - Plan Plan: Upper Level Addendum: I personally evaluated the patient and discussed it with Dr. Regalado. I agree with his evaluation, assessment, and plan with exceptions as listed below: 1) Atypical chest pain - Stress with global hypokinesis but no obvious ischemia. Echo showed EF 45 to 55%. Cardiology consulted. Patient likely appropriate for discharge home. Dr. Regalado will discuss with Dr. Lepe 2) COPD exacerbation - Continue steroids and antibiotics. <Kiko Marte - Last Filed: 10/02/17 11:51> (1) COPD exacerbation Code(s): J44.1 - CHRONIC OBSTRUCTIVE PULMONARY DISEASE W (ACUTE) EXACERBATION Status: Acute (2) Gastroenteritis Code(s): K52.9 - NONINFECTIVE GASTROENTERITIS AND COLITIS, UNSPECIFIED Status : Acute (3) Hypochloremia Code(s): E87.8 - OTH DISORDERS OF ELECTROLYTE AND FLUID BALANCE, NEC Status: Acute (4) Hyponatremia Code(s): E87.1 - HYPO-OSMOLALITY AND HYPONATREMIA Status: Acute (5) CAD (coronary artery disease) Code(s): I25.10 - ATHSCL HEART DISEASE OF [place] CORONARY ARTERY W/O ANG PCTRS Status: Chronic QualifierTitle: Coronary Disease-Associated Artery/Lesion type: bypass graft [place] vs. transplanted heart: [place] heart Associated angina: without angina Qualified Code(s): I25.810 - Atherosclerosis of coronary artery bypass graft(s) without angina pectoris (6) GERD (gastroesophageal reflux disease) Code(s): K21.9 - GASTRO-ESOPHAGEAL REFLUX DISEASE WITHOUT ESOPHAGITIS Status: Chronic (7) HTN (hypertension) Code(s): I10 - ESSENTIAL (PRIMARY) HYPERTENSION Status: Chronic QualifierTitle: Hypertension type: essential hypertension Qualified Code( s): I10 - Essential (primary) hypertension (8) PAD (peripheral artery disease) Code(s): I73.9 - PERIPHERAL VASCULAR DISEASE, UNSPECIFIED Status: Chronic (9) Atypical chest pain Code(s): R07.89 - OTHER CHEST PAIN Status: Resolved (10) CHF (congestive heart failure) Code(s): I50.9 - HEART FAILURE, UNSPECIFIED Status: Chronic QualifierTitle: Heart failure type: systolic - Plan Plan: Atypical chest pain - trops trended down - Nuc stress test showed EF in the low 20% - Echo yesterday showed EF 45-55% which matched last echo from Dr. Lepe's office - Dr. Lepe and Dr. Porter have seen the patient COPD exacerbation, likely - Prednisone PO 40 mg, home for 3 more days - Levaquin 500 mg PO, home for 3 more days - Schedule duonebs q4 - O2 by NC PRN to maintain sat over 92% - on RA this morning Gastroenteritis - likely viral - loose stool resolved Hyponatremia - asymptomatic - 2/2 volume loss via GI - IVF as above - increased to 132 on day of d/c Hypochloremia - asymptomatic - 2/2 volume loss via GI - IVF as above - BMP in am, trend CHF - patient does not currently appear to be volume overloaded - monitor I/O - heart healthy low sodium diet - continue home meds HTN - currently controlled - continue home meds GERD - continue home PPI HLD - continue statin CAD/PAD - stress test as above - continue home antihypertensives, ASA, statin 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 [] I agree with the History, Examination, Assessment and Plan documented above with any addition or exceptions noted below. Patient back to baseline, feeling well. Will discuss plan to discharge with Dr. Lepe and send her home with his approval later today. <Cheryl Ley - Last Filed: 10/02/17 14:59>
[2017-10-02 13:22] VITALS: BP 131/61; TEMP 97.7
--- NOTE | 2017-10-03 03:17 | DIS-2 ---
DATE OF ADMISSION: 09/30/2017 DATE OF DISCHARGE: 10/02/2017 RESIDENT: Dr. Blake Regalado. ADMITTING ATTENDING: Dr. Nanda Brito. CONSULTATIONS: Cardiology. PROCEDURES: Echocardiogram, stress test. PRIMARY DIAGNOSIS: Atypical chest pain. SECONDARY DIAGNOSES: Chronic obstructive pulmonary disease exacerbation, gastroenteritis, hyponatrem ia, hypochloremia, congestive heart failure, hypertension, gastroesophageal reflux disease, hyperlipi demia, history of coronary artery disease/peripheral artery disease, history of smoking. DISCHARGE MEDICATIONS: Levofloxacin 500 mg p.o. for 3 days, prednisone 40 mg p.o. for 3 days. CONTINUE HOME MEDICATIONS: Aspirin 325 daily, atorvastatin 80 mg daily, carvedilol 6.25 mg daily, Ne xium 40 mg daily, ezetimibe 10 mg daily, furosemide 40 mg p.o. daily, naproxen 220 mg p.o. b.i.d. p.r .n., spironolactone 12.5 mg p.o. nightly. HISTORY OF PRESENT ILLNESS/HOSPITAL COURSE: Patient presented to the ED complaining of crushing ches t pain of onset on the morning before coming in. She said she has been coughing up for the past few days and felt like that was the cause of her chest pain, she states that her chest pain currently res olved upon presentation to the ED. The pain was present and exacerbated by coughing. She denied any radiation to the pain. She states that she has been coughing for a few days, but denied any product ion. She admits to be short of breath at home. She also complained of 1 week of watery diarrhea wit hout blood or mucus before coming in. She denied any nausea, vomiting, or abdominal pain. She had n o sick contacts. During the course of the hospitalization, the patient was treated for COPD exacerbation with DuoNebs every 4 hours, prednisone 40 mg daily, levofloxacin 500 mg daily. Her shortness of breath resolved q uickly during the hospitalization. She was also given the stress test as well as echocardiogram. e stress test showed an EF of 22%, which is much lower than her most recent echocardiogram, which angel wed an EF of 40%-50%. Echocardiogram on this visit showed an EF of 45%-50%, which was consistent wit h previous exams. I spoke with Cardiology, who agreed that no further cardiac workup was needed and she can be discharged home with outpatient followup. DISPOSITION: Stable. DISCHARGE INSTRUCTIONS: 1. Location: Home. 2. Diet: Regular. 3. Activity: As tolerated. 4. Follow up with PCP within 1 week.
--- NOTE | 2017-10-06 13:22 | EKG ---
Test Reason : SOB Blood Pressure : / mmHG Vent. Rate : 083 BPM Atrial Rate : 083 BPM P-R Int : 168 ms QRS Dur : 122 ms QT Int : 408 ms P-R-T Axes : 042 -44 006 degrees QTc Int : 479 ms Sinus rhythm with occasional Premature ventricular complexes Left axis deviation Right bundle branch block Abnormal ECG No change from 07/26/2014 Confirmed by BORA GIFFORD ([id number]), associate entertainment editor ALINE MCALLISTER ([id number] on 10/06/2017 1:21:47 PM Referred By: STUART Confirmed By:BORA GIFFORD
--- NOTE | 2017-11-14 23:04 | STRESS ---
Acquisition Time: 2017-10-01 08:58:02 Total Exercise Time: 00:01:00 Test Indications: CHEST PAIN Medications: Protocol: LEXISCAN Max HR: 097 BPM 65% of Pred: 148 BPM Max BP: 152/070 mmHG Max Work Load: 1.0 METS RESTING ECG: NORMAL SINUS RHYTHM AT 81 BPM WITH COMPLETE RIGHT BUNDLE BRANCH BLOCK SYMPTOMS: DIZZY/WEAK NORMAL BP RESPONSE ECTOPY: NONE ECG STRESS: NO SIGNIFICANT CHANGES INTERPRETATION: NEGATIVE ECG/AWAIT NUCLEAR IMAGES FOR DEFINITIVE DIAGNOSIS Confirmed by Murtaza CARL ([id number]) on 11/14/2017 11:04:15 PM Referred By: MD Ruslan WANG Confirmed By:Murtaza CARL
== END 2017-10-02 15:57 | disposition home or self-care (01) ==
LOC: ERS 10:09 → 2SW 13:04
PROVIDERS: ADMIT Family Medicine; ATTEND Family Medicine
DX: R07.89 Other chest pain (principal); J44.1 Chronic obstructive pulmonary disease with (acute) exacerbation; K52.9 Noninfective gastroenteritis and colitis, unspecified; E87.1 Hypo-osmolality and hyponatremia; E87.8 Other disorders of electrolyte and fluid balance, not elsewhere classified; I25.5 Ischemic cardiomyopathy; I11.0 Hypertensive heart disease with heart failure; I50.22 Chronic systolic (congestive) heart failure; K21.9 Gastro-esophageal reflux disease without esophagitis; E78.5 Hyperlipidemia, unspecified; I73.9 Peripheral vascular disease, unspecified; I25.810 Atherosclerosis of coronary artery bypass graft(s) without angina pectoris; Z79.82 Long term (current) use of aspirin; Z79.899 Other long term (current) drug therapy; Z88.6 Allergy status to analgesic agent; Z91.018 Allergy to other foods; Z91.048 Other nonmedicinal substance allergy status; Z95.1 Presence of aortocoronary bypass graft; Z95.820 Peripheral vascular angioplasty status with implants and grafts; Z90.49 Acquired absence of other specified parts of digestive tract; Z98.890 Other specified postprocedural states; Z87.891 Personal history of nicotine dependence; Z86.73 Personal history of transient ischemic attack (TIA), and cerebral infarction without residual deficits
CPT/HCPCS: 71045; 78452; 80048 ×2; 80053; 80061; 82550; 82553; 83880; 84484 ×2; 85025; 85027; 93005; 93017; 93306; 94640 ×3; 94760 ×2; 96374; 97139 ×2; 99285; A9500; G0378; 36415; J1650; J2785; J2930; J7506; J7611; J7620

== ENCOUNTER 2019-05-23 09:17 | Outpatient (CLI) | payer MEDICARE, MEDICAID ==
--- NOTE | 2019-05-23 09:41 | RAD ---
TWO VIEWS OF THE LUMBAR SPINE: DATE: 05/23/2019. COMPARISON: None. HISTORY: Back pain with right-sided sciatica, lumbar radiculopathy. FINDINGS: There is severe degenerative change involving the right hip, better assessed on dedicated right hip r adiographs. There is atherosclerotic calcification of the abdominal aorta and the arterial structures of the pelv is. There is multilevel facet hypertrophy, most prominent at the L3-4, L4-5, and L5-S1 levels. There is mild anterolisthesis at L3-4 measuring 4 mm and at L4-5 measuring 6 mm. No acute osseous abn ormality. IMPRESSION: Degenerative change within the lumbar spine and right hip. Atherosclerotic calcification as above. Transcribed Date/Time: 05/23/2019 9:53 AM
--- NOTE | 2019-05-23 09:44 | RAD ---
2 views right hip: 05/23/2019 COMPARISON: None HISTORY: Pain FINDINGS: There is severe degenerative change involving the right hip with complete loss of joint spa ce superiorly. There is subchondral sclerosis of the acetabular roof. There is subchondral sclerosis and flattening of the femoral head. There are also subchondral areas of lucency involving t he acetabular roof and the femoral head consistent with degenerative geode formation. No acute fracture or dislocation. There is atherosclerotic calcification within the imaged medial right thigh. IMPRESSION: Severe degenerative change of the right hip.
== END 2019-05-23 09:18 | disposition home or self-care (01) ==
LOC: BICRAD 09:17
PROVIDERS: ATTEND Physician Assistant
DX: M54.41 Lumbago with sciatica, right side (principal); M25.551 Pain in right hip; M16.11 Unilateral primary osteoarthritis, right hip; M47.816 Spondylosis without myelopathy or radiculopathy, lumbar region; I70.0 Atherosclerosis of aorta
CPT/HCPCS: 36415; 72100; 80048

== ENCOUNTER 2019-06-26 14:52 | Outpatient (CLI) | payer MEDICARE, MEDICAID ==
--- NOTE | 2019-06-26 15:40 | BD ---
BONE DENSITOMETRY USING DEXA: HISTORY: Postmenopausal screening for osteoporosis. Asymptomatic premenopausal state. FINDINGS: Lumbar Spine: BMD (g/cm2) L1 1.146 T-Score: 1.4 Z-Score: 3.5 L2 1.106 T-Score: 0.7 Z-Score: 3.0 L3 1.314 T-Score: 2.1 Z-Score: 4.6 L4 1.497 T-Score: 4.0 Z-Score: 6.5 L1-L4 1.275 T-Score: 2.1 Z-Score: 4.4 Femoral Neck: 0.555 T-Score: -2.6 Z-Score: -0.6 Total Femur: 0.770 T-Score: -1.4 Z-Score: 0.3 Impression: Osteoporosis. POS: TPC
== END 2019-06-26 14:53 | disposition home or self-care (01) ==
LOC: BICMAMMO 14:52
PROVIDERS: ATTEND Physician Assistant
DX: Z13.820 Encounter for screening for osteoporosis (principal); Z78.0 Asymptomatic menopausal state; M81.0 Age-related osteoporosis without current pathological fracture
CPT/HCPCS: 77080

== ENCOUNTER 2020-12-25 11:57 | Inpatient (IN) | payer MEDICARE, MEDICAID ==
[2020-12-25] MEDS ORDERED: Iopamidol-370 76% 500 ML 1 ML ONE (12:48)
[2020-12-25] MEDS ORDERED: Aspirin Chewable 81 MG TAB ONE ×2 (13:12→13:52)
[2020-12-25 13:24] LABS: Albumin 3.7 g/dL (3.4-4.8)
[2020-12-25 13:26] LABS: Calcium 9.3 mg/dL (7.8-10.44); Chloride 93 mmol/L (98-107); Potassium 4.1 mmol/L (3.5-5.1); Sodium 125 mmol/L (136-145)
[2020-12-25 13:27] LABS: Glucose 117 mg/dL (83-110); Protein, Total 6.7 g/dL (5.8-8.1)
[2020-12-25 13:28] LABS: Anion Gap 15 mmol/L (10-20); Carbon Dioxide 21 mmol/L (23-31)
[2020-12-25 13:29] LABS: Bilirubin, Total 0.3 mg/dL (0.2-1.2)
[2020-12-25 13:30] LABS: Alkaline Phosphatase 84 U/L (40-110); Calc. Creatinine Clearance 0 mL/min (70-130)
[2020-12-25 13:31] LABS: BUN (Urea Nitrogen) 22 mg/dL (9.8-20.1)
[2020-12-25 13:32] LABS: AST (SGOT) 16 U/L (5-34)
[2020-12-25 13:33] LABS: ALT (SGPT) 9 U/L (8-55); CK (CPK) 131 U/L (29-168)
[2020-12-25 14:08] LABS: Hemoglobin 13.7 g/dL (12.0-16.0); Mean Corpuscular HGB CONC 34.6 g/dL (32.0-36.0); Mean Corpuscular Hemoglobin 33.6 pg (27.0-31.0); Mean Corpuscular Volume 97.2 fL (78.0-98.0); Mean Platelet Volume 7.4 fL (7.4-10.4); Platelet Count 195 thou/uL (130-400); RBC Distribution Width 14.1 % (11.5-14.5); Red Blood Cell (RBC) Count 4.08 mill/uL (4.20-5.40); White Blood Cell (WBC) Count 8.8 thou/uL (4.8-10.8)
[2020-12-25] MEDS ORDERED: Acetaminophen 325 MG TAB PO PRN (14:12)
[2020-12-25] MEDS ORDERED: Ondansetron ODT 4 MG TAB SL PRN (14:12)
[2020-12-25] MEDS ORDERED: Ondansetron PF 4 MG/2 ML Vial IVP PRN (14:12)
[2020-12-25] MEDS ORDERED: Senokot S 8.6-50 MG TAB PO PRN (14:12)
[2020-12-25] MEDS ORDERED: Calcium Carbonate 500 MG ChewTAB PO PRN (14:12)
[2020-12-25] MEDS ORDERED: Bisacodyl 10 MG SUPP PR PRN (14:12)
[2020-12-25] MEDS ORDERED: Sodium Chloride 0.9% 1,000 ML IV SCH (14:15)
[2020-12-25] MEDS ORDERED: Cepastat Lozenges 1 LOZ PO PRN (14:16)
[2020-12-25] MEDS ORDERED: Labetalol HCl 100 MG/20 ML VIAL SLOW IVP PRN (14:16)
[2020-12-25] MEDS ORDERED: Nitroglycerin 0.4 MG TAB (25 Tab Bottle) SL PRN (14:16)
[2020-12-25] MEDS ORDERED: hydrALAZINE 20 MG/ML VIAL SLOW IVP PRN (14:16)
[2020-12-25] MEDS ORDERED: GUAIFENESIN SF SOLN 200 MG/10 ML UDCUP PO PRN (14:16)
[2020-12-25] MEDS ORDERED: Sodium Chloride 0.65% Nasal 44 ML BOT EA NARE PRN (14:16)
[2020-12-25 14:17] LABS: Prothrombin Time 13.3 sec (12.0-14.7)
[2020-12-25 14:18] LABS: PTT 19.3 sec (22.9-36.1)
[2020-12-25 14:28] LABS: Band 11 % (5-11); Lymphocytes 18 % (21-51); MDiff Complete? YES; Monocytes 3 % (0-10); Neutrophil 68 % (42-75)
[2020-12-25 18:25] LABS: Bacteria/HPF 2+ HPF (None Seen); Bilirubin Negative (Negative); Blood, Urine Trace (Negative); Clarity Clear (Clear); Glucose, Urine (Dipstick) Normal (Negative); Ketone, Urine Trace mg/dL (Negative); Leukocyte 25 Leu/uL (Negative); Nitrite 2+ (Negative); Protein, Urine (Dipstick) 10 mg/dL (Neg-Trace); RBC/HPF 0-3 HPF (0-3); Specific Gravity, Urine 1.034 (1.002-1.036); Squamous Epithelial 0-3 HPF (0-3); Urobilinogen Normal mg/dL (Less than 2)
[2020-12-25] MEDS: Acetaminophen 650 MG Suppository PR PRN (19:18)
[2020-12-25 20:00] LABS: Troponin I 0.025 ng/mL (< 0.028)
[2020-12-25 20:03] LABS: SARS-CoV-2 PCR by NAA Not Detected (NotDetected)
[2020-12-25] MEDS: Atorvastatin Calcium 40 MG TAB PO SCH (21:56)
[2020-12-25] MEDS: Famotidine/PF 20 mg/2ml Vial SLOW IVP SCH (22:11)
[2020-12-25] MEDS: Heparin 5,000 UNITS/ML VIAL SC SCH (22:58)
[2020-12-26 05:08] LABS: #Basophils 0.1 thou/uL (0.0-0.2); #Lymphocytes 1.5 thou/uL (1.20-3.40); #Monocytes 0.7 thou/uL (0.11-0.59); #Neutrophils 8.9 thou/uL (1.40-6.50); %Basophils 0.5 % (0.0-1.0); %Eosinophils 0.1 % (0.0-10.0); %Lymphocytes 13.2 % (21.0-51.0); %Monocytes 6.4 % (0.0-10.0); %Neutrophils 79.8 % (42.0-75.0); Hemoglobin 13.7 g/dL (12.0-16.0); Mean Corpuscular Hemoglobin 33.1 pg (27.0-31.0); Mean Corpuscular Volume 97.2 fL (78.0-98.0); Mean Platelet Volume 6.6 fL (7.4-10.4); Platelet Count 258 thou/uL (130-400); RBC Distribution Width 14.1 % (11.5-14.5); Red Blood Cell (RBC) Count 4.13 mill/uL (4.20-5.40); White Blood Cell (WBC) Count 11.2 thou/uL (4.8-10.8)
[2020-12-26 06:07] LABS: ALT (SGPT) 10 U/L (8-55); AST (SGOT) 21 U/L (5-34); Albumin 3.7 g/dL (3.4-4.8); Alkaline Phosphatase 87 U/L (40-110); Anion Gap 16 mmol/L (10-20); BUN (Urea Nitrogen) 17 mg/dL (9.8-20.1); Bilirubin, Total 0.3 mg/dL (0.2-1.2); Calc. Creatinine Clearance 54 mL/min (70-130); Carbon Dioxide 18 mmol/L (23-31); Cardiac Risk 3.5 (Less than 4.5); Chloride 96 mmol/L (98-107); Cholesterol 127 mg/dl (< 200 Desired); Glucose 97 mg/dL (83-110); HDL Cholesterol 36 mg/dL (>60 Neg Risk); LDL Cholesterol, Calculated 70 mg/dL; Potassium 3.8 mmol/L (3.5-5.1); Protein, Total 6.7 g/dL (5.8-8.1); Sodium 126 mmol/L (136-145); Triglycerides 105 mg/dL (Less than 150)
[2020-12-26 06:15] LABS: Syphilis Antibody Nonreactive (Nonreactive); Syphilis Antibody Index 0.05 S/CO (<1.00 Non-Reactive)
[2020-12-26] MEDS: Aspirin 325 MG TAB PO SCH (09:38)
[2020-12-26] MEDS: Heparin 5,000 UNITS/ML VIAL SC SCH (09:39)
[2020-12-26] MEDS: cefTRIAXone\\ROCEPHIN 1 GM in Sodium Chloride 0.9% 100 ML IVPB SCH (09:46)
[2020-12-26] MEDS: Enoxaparin Sodium 40 MG/0.4 ML SYRINGE SC SCH (09:49)
[2020-12-26] MEDS: Aspirin 300 MG Suppository PR SCH (09:49)
[2020-12-26] MEDS: Acetaminophen 650 MG Suppository PR PRN (09:52)
[2020-12-26] MEDS: Famotidine/PF 20 mg/2ml Vial SLOW IVP SCH ×2 (09:53→23:14)
[2020-12-26] MEDS: Ezetimibe 10 MG TAB PO SCH (10:10)
[2020-12-26] MEDS: Morphine 2 MG/ML VIAL SLOW IVP PRN (13:42)
[2020-12-26] MEDS ORDERED: Carvedilol 6.25 MG TAB PO SCH (21:00)
[2020-12-26] MEDS: Atorvastatin Calcium 40 MG TAB PO SCH (23:13)
[2020-12-26] MEDS: Carvedilol 6.25 MG TAB PO SCH (23:13)
[2020-12-27] MEDS ORDERED: Mannitol 12.5 GM/50 ML SLOW IVP SCH ×4 (03:30→16:00)
[2020-12-27] MEDS: Morphine 2 MG/ML VIAL SLOW IVP PRN (06:21)
[2020-12-27] MEDS: Aspirin 300 MG Suppository PR SCH (10:37)
[2020-12-27] MEDS: Aspirin 325 MG TAB PO SCH (11:01)
[2020-12-27] MEDS: Enoxaparin Sodium 40 MG/0.4 ML SYRINGE SC SCH (11:01)
[2020-12-27] MEDS: Famotidine/PF 20 mg/2ml Vial SLOW IVP SCH ×2 (11:01→20:16)
[2020-12-27] MEDS: Cholecalciferol 1,000 UNITS (25 MCG) TAB PO SCH (11:02)
[2020-12-27] MEDS: Carvedilol 6.25 MG TAB PO SCH ×2 (11:02→20:15)
[2020-12-27] MEDS: Ezetimibe 10 MG TAB PO SCH (11:03)
[2020-12-27 12:43] LABS: #Lymphocytes 1.2 thou/uL (1.20-3.40); #Monocytes 0.9 thou/uL (0.11-0.59); #Neutrophils 8.8 thou/uL (1.40-6.50); %Basophils 0.1 % (0.0-1.0); %Eosinophils 0.1 % (0.0-10.0); %Lymphocytes 10.8 % (21.0-51.0); %Monocytes 8.5 % (0.0-10.0); %Neutrophils 80.5 % (42.0-75.0); Hemoglobin 13.2 g/dL (12.0-16.0); Mean Corpuscular HGB CONC 33.3 g/dL (32.0-36.0); Mean Corpuscular Hemoglobin 32.5 pg (27.0-31.0); Mean Corpuscular Volume 97.8 fL (78.0-98.0); Platelet Count 276 thou/uL (130-400); RBC Distribution Width 14.3 % (11.5-14.5); Red Blood Cell (RBC) Count 4.07 mill/uL (4.20-5.40); White Blood Cell (WBC) Count 10.9 thou/uL (4.8-10.8)
[2020-12-27 13:05] LABS: Anion Gap 15 mmol/L (10-20); BUN (Urea Nitrogen) 13 mg/dL (9.8-20.1); Calc. Creatinine Clearance 56 mL/min (70-130); Calcium 9.4 mg/dL (7.8-10.44); Carbon Dioxide 21 mmol/L (23-31); Chloride 95 mmol/L (98-107); Glucose 101 mg/dL (83-110); Potassium 3.4 mmol/L (3.5-5.1); Sodium 128 mmol/L (136-145)
[2020-12-27] MEDS: cefTRIAXone\\ROCEPHIN 1 GM in Sodium Chloride 0.9% 100 ML IVPB SCH (13:10)
[2020-12-27] MEDS: Atorvastatin Calcium 40 MG TAB PO SCH (20:15)
[2020-12-28] MEDS: Aspirin 300 MG Suppository PR SCH (07:52)
[2020-12-28 08:19] LABS: #Monocytes 1.4 thou/uL (0.11-0.59); #Neutrophils 12.5 thou/uL (1.40-6.50); %Basophils 0.3 % (0.0-1.0); %Eosinophils 0.1 % (0.0-10.0); %Lymphocytes 12.5 % (21.0-51.0); %Monocytes 8.8 % (0.0-10.0); %Neutrophils 78.3 % (42.0-75.0); Hemoglobin 13.5 g/dL (12.0-16.0); Mean Corpuscular HGB CONC 34.9 g/dL (32.0-36.0); Mean Corpuscular Volume 97.4 fL (78.0-98.0); Mean Platelet Volume 7.2 fL (7.4-10.4); Platelet Count 274 thou/uL (130-400); Red Blood Cell (RBC) Count 3.98 mill/uL (4.20-5.40); White Blood Cell (WBC) Count 15.9 thou/uL (4.8-10.8)
[2020-12-28 08:40] LABS: ALT (SGPT) 12 U/L (8-55); AST (SGOT) 24 U/L (5-34); Albumin 3.5 g/dL (3.4-4.8); Alkaline Phosphatase 106 U/L (40-110); Anion Gap 12 mmol/L (10-20); BUN (Urea Nitrogen) 17 mg/dL (9.8-20.1); Bilirubin, Total 0.3 mg/dL (0.2-1.2); Calc. Creatinine Clearance 53 mL/min (70-130); Calcium 10.2 mg/dL (7.8-10.44); Carbon Dioxide 25 mmol/L (23-31); Chloride 96 mmol/L (98-107); Globulin 3.4 g/dL (2.4-3.5); Glucose 172 mg/dL (83-110); Potassium 3.1 mmol/L (3.5-5.1); Protein, Total 6.9 g/dL (5.8-8.1); Sodium 130 mmol/L (136-145)
[2020-12-28] MEDS: cefTRIAXone\\ROCEPHIN 1 GM in Sodium Chloride 0.9% 100 ML IVPB SCH (10:03)
[2020-12-28] MEDS: Enoxaparin Sodium 40 MG/0.4 ML SYRINGE SC SCH (10:04)
[2020-12-28] MEDS: Ezetimibe 10 MG TAB PO SCH (10:04)
[2020-12-28] MEDS: Cholecalciferol 1,000 UNITS (25 MCG) TAB PO SCH (10:04)
[2020-12-28] MEDS: Carvedilol 6.25 MG TAB PO SCH ×2 (10:05→22:42)
[2020-12-28] MEDS: Famotidine/PF 20 mg/2ml Vial SLOW IVP SCH ×2 (10:05→22:43)
[2020-12-28] MEDS: Aspirin 325 MG TAB PO SCH (10:05)
[2020-12-28] MEDS ORDERED: Potassium Chloride 20 MEQ in Premix Bag 1 BAG IVPB SCH (10:15)
[2020-12-28] MEDS: Atorvastatin Calcium 40 MG TAB PO SCH (22:43)
[2020-12-29] MEDS: Morphine 2 MG/ML VIAL SLOW IVP PRN (02:17)
[2020-12-29] MEDS ORDERED: Morphine 2 MG/ML VIAL SLOW IVP SCH (03:45)
[2020-12-29] MEDS: Enoxaparin Sodium 40 MG/0.4 ML SYRINGE SC SCH (11:34)
[2020-12-29] MEDS: Aspirin 325 MG TAB PO SCH (11:38)
[2020-12-29] MEDS: Aspirin 300 MG Suppository PR SCH (11:38)
[2020-12-29] MEDS: Carvedilol 6.25 MG TAB PO SCH (11:38)
[2020-12-29] MEDS: Cholecalciferol 1,000 UNITS (25 MCG) TAB PO SCH (11:38)
[2020-12-29] MEDS: Ezetimibe 10 MG TAB PO SCH (11:39)
[2020-12-29] MEDS: cefTRIAXone\\ROCEPHIN 1 GM in Sodium Chloride 0.9% 100 ML IVPB SCH (13:45)
[2020-12-29] MEDS: Famotidine/PF 20 mg/2ml Vial SLOW IVP SCH (13:45)
[2020-12-29 15:54] VITALS: BP 137/63; TEMP 98
== END 2020-12-29 20:15 | disposition hospice, inpatient (51) | DRG 64 ==
LOC: ERS 11:57 → ERHOLD 13:58 → 2SE 18:18
PROVIDERS: ADMIT Internal Medicine; ATTEND Internal Medicine
DX: I63.511 Cerebral infarction due to unspecified occlusion or stenosis of right middle cerebral artery (principal); G93.6 Cerebral edema; G93.5 Compression of brain; Z66 Do not resuscitate; N30.00 Acute cystitis without hematuria; I25.810 Atherosclerosis of coronary artery bypass graft(s) without angina pectoris; I50.42 Chronic combined systolic (congestive) and diastolic (congestive) heart failure; G81.04 Flaccid hemiplegia affecting left nondominant side; I13.0 Hypertensive heart and chronic kidney disease with heart failure and stage 1 through stage 4 chronic kidney disease, or unspecified chronic kidney disease; E87.1 Hypo-osmolality and hyponatremia; N17.9 Acute kidney failure, unspecified; Z20.822 Contact with and (suspected) exposure to COVID-19; E87.6 Hypokalemia; I73.9 Peripheral vascular disease, unspecified; I45.10 Unspecified right bundle-branch block; F17.210 Nicotine dependence, cigarettes, uncomplicated; K21.9 Gastro-esophageal reflux disease without esophagitis; N18.32 Chronic kidney disease, stage 3b; J44.9 Chronic obstructive pulmonary disease, unspecified; E78.5 Hyperlipidemia, unspecified; R29.810 Facial weakness; Z88.8 Allergy status to other drugs, medicaments and biological substances; Z79.82 Long term (current) use of aspirin; Z79.899 Other long term (current) drug therapy; Z95.1 Presence of aortocoronary bypass graft
CPT/HCPCS: 36415; 36416; 70450; 70496; 70498; 74018; 80048; 80053; 80061; 81001; 82550; 83090; 83930; 84484; 85025; 85610; 85730; 86780; 87077; 87086; 87186; 87635; 93005; 93306; 95712; 95819; 95957; J0696; J1644; J1650; J2150; J2270; J3480; J3490; Q9967; S0028; U0003; U0005